=== PATIENT | male | born 1995 | race Caucasian/White ===

== ENCOUNTER 2022-07-28 15:52 | Emergency (ER) | payer OTHER, SELFPAY ==
--- NOTE | 2022-07-28 15:53 | XRR_ITS ---
PROCEDURE INFORMATION: Exam: XR Right Hand Exam date and time: 07/28/2022 4:19 PM Age: 27 years old Clinical indication: Injury or trauma; Other: Table saw; Laceration; Hand; Right; Additional info: Cut finger on saw TECHNIQUE: Imaging protocol: Radiologic exam of the Right hand. Views: 3 or more views. COMPARISON: No relevant prior studies available. FINDINGS: Bones/joints: Comminuted displaced fracture in the tuft of the 3rd distal phalanx. The other bones are intact. Soft tissues: Soft tissue crush injury or laceration in the tip of the 3rd finger. Bandage material in place. XR/XR hand RT min 3V* [id number] IMPRESSION: 1. Comminuted 3rd tuft fracture.
[2022-07-28 15:55] VITALS: BP 135/67; PULSE 54; RESP 14; TEMP 36.8; O2SAT 98; BMI 47.2
[2022-07-28 16:04] VITALS: BP 135/67; PULSE 54; RESP 14; TEMP 36.8; O2SAT 98
--- NOTE | 2022-07-28 16:32 | ED_ITS ---
Documented by User: NICKIE Negrete 07/29/22 01:19 HPI - Extremity Problem General: Chief complaint: Extremity Injury, Upper Stated complaint: Right hand, finger lac Time Seen by Provider: 07/28/22 16:10 History of Present Illness: Patient is a 27-year-old male who comes to the ED with laceration to right middle finger. Injury occurred just prior to arrival. Patient says he was using a table saw and cut distal end of right middle finger. He is not up-to-date on his tetanus. Associated symptoms: Deny chest pain, fever(s) or rash Review of Systems Const: Denies: fever(s), chills or fatigue Eyes: Denies: change in vision or eye discomfort ENMT: Denies: throat pain, odynophagia, nasal discharge or nasal congestion Card: Denies: chest pain, palpitations, edema, swelling of feet/ankles, dyspnea on exertion or orthopnea Resp: Denies: dyspnea, productive cough or non-productive cough GI: Denies: abdominal pain, nausea, vomiting, diarrhea, constipation or hematochezia : Denies: flank pain, difficulty urinating, dysuria or hematuria Musc: Reports: extremity pain (Right hand middle finger); Denies: neck pain, back pain or extremity swelling Skin/Breast: Reports: new lesions (Laceration to distal end of right middle finger); Denies: rash Neuro: Denies: headache(s), numbness in extremities or weakness in extremities [facility] ED PFSH: Medical History No pertinent family history Surgical History No pertinent past surgical history Physical Exam Const: COMMON NORMALS: no acute distress, patient oriented x3 and alert GENERAL APPEARANCE: cooperative and comfortable HENMT: COMMON NORMALS: normocephalic HEAD & SCALP: normocephalic MOUTH: Normal oral and palatal mucosa present THROAT: posterior oropharynx normal and uvula midline Neck/C-Spine: COMMON NORMALS: supple GENERAL: Yes normal visual inspection Resp: COMMON NORMALS: normal respiratory effort, No retractions, No use of accessory muscles and clear to auscultation bilaterally AUSCULTATION: clear to auscultation bilaterally Cardio: COMMON NORMALS: regular rate, regular rhythm, S1 normal heart sound present, S2 normal heart sound present, No gallops present (Cardio), No clicks present (Cardio), No murmurs present (Cardio) and Peripheral pulses 2+ throughout RATE: regular rate RHYTHM: regular rhythm HEART SOUNDS: S1 normal heart sound present and S2 normal heart sound present PERIPHERAL PULSES: Peripheral pulses 2+ throughout GI: COMMON NORMALS: Normal to inspection, nondistended, normoactive bowel sounds present, Soft to palpation, non-tender and no masses PALPATION: Yes Soft to palpation : COMMON NORMALS: Yes no CVA tenderness BLADDER/KIDNEY EXAM: Yes no CVA tenderness Back/Pelvis: COMMON NORMALS: no CVA tenderness Extremity: NARRATIVE EXTREMITY EXAM: Right hand middle finger?distal pad has irregular shaped 2.5 cm laceration. Laceration is not clean cut and extensive soft tissue damage from distal pad of finger. Nail bed and nail intact. Neuro: COMMON NORMALS: patient oriented x3 SENSORIUM/ORIENTATION: Yes alert GAIT: Yes Normal gait present Skin: GENERAL SKIN EXAM: dry skin Procedures Laceration Laceration 1: Site: hand (Distal pad end of third digit) Size (cm): 2.5 Description: irregular Depth: simple, single layer Local Anesthetic: bupivacaine 0.25% (Digital block) Amount of anesthesia used (mL): 5 Pre-repair: irrigated extensively (Extensively with normal saline beta iodine wash. Surgical scrub was also used to clean finger and hand) Skin layer closed with: nylon Size (cm): 3-0 Number of sutures: 5 Technique: simple, interrupted Nerve Block Nerve Block 1: Time out performed: Yes Local Anesthetic: bupivacaine 0.25% Amount of anesthesia used (mL): 5 Side: right Nerve Blocks: digital (Third digit) Procedure Successful: Yes Patient Tolerated Procedure: well Complications: none Course Consultations: Consultation #1: I contacted Dr. Galvan told about patient case and he told me to perform digital block on patient and irrigate and clean finger wound extensively. Loosely close laceration site with a couple sutures. Send patient home on an antibiotic and he will follow-up with him in clinic in the next couple days. Vital Signs: Vital signs: Vital Signs Temperature 98.2 F 07/28/22 18:38 Pulse Rate 54 L 07/28/22 18:38 Respiratory Rate 14 07/28/22 18:38 Blood Pressure 135/67 07/28/22 18:38 Pulse Oximetry 98 07/28/22 18:38 Oxygen Delivery Me thod 07/28/22 16:04 MDM - Extremity (Nontraumatic) Medical Decision Making Patient is a 27-year-old male comes to the ED with laceration of distal end of right middle finger. Patient cut it on a table saw just prior to arrival. Patient appears nontoxic in no acute distress or pain. Right hand middle finger?distal pad has irregular shaped 2.5 cm laceration. Laceration is not clean and extensive soft tissue damage from distal pad of finger. Nail bed and nail intact. X-ray of right hand shows comminuted third tuft fracture. I contacted Dr. Galvan about patient case and he instructed me on how to manage case here in the ED and that he will follow-up with them in the clinic in the next couple days. Digital block with bupivacaine 0.25% used for pain control. Finger and hand was then extensively cleaned with surgical scrub and wound was irrigated extensively with normal saline and beta iodine by nurse. I then placed 5 sutures to loosely close up laceration on finger. Nurse then cleaned f bianka applied some triple antibiotic ointment on it and bandaged it up. Patient was given updated tetanus here in the ED and also given a dose of IV Ancef due to open fracture. I placed an order with case management for patient to get set up for appointment with Dr. Galvan within the next 2 days for reevaluation of finger. Patient was stable for discharge home diagnosed with open fracture of distal phalanx of digit of right hand. He was sent home with a prescription for cephalexin, ibuprofen and hydrocodone for pain. Return to ED precautions given. Patient understood and agreed with plan. Lab Data Radiology Impressions Hand X-Ray 07/28/22 15:53 IMPRESSION: 1. Comminuted 3rd tuft fracture. Discharge Plan Discharge Patient Disposition: Home Clinical Impression: Open fracture of distal phalanx of digit of right hand Condition: Stable Prescriptions: New cephalexin 500 mg capsule 500 mg PO Q6H 7 Days Qty: 28 0RF ibuprofen 800 mg tablet 800 mg PO Q8H PRN (Reason: pain) Qty: 20 0RF Discharge Orders: Discharge ED (Routine); Ordered 07/28/22 Ordered By: Jean Baig Referrals: Gilda Acosta FNP-C [Primary Care Provider] - Discharge Diet: Regular Discharge Activity: Limit activity as instructed Patient Instructions: Fractures - Phalanx (Finger), Opioid Safety Activity Restrictions/Additional Instructions: Follow-up with medical provider as directed. Case management should be contacting you in the next several days to set up an appointment with Ortho for follow-up on finger injury. Do not get right hand submerged in any water and limit any activity with right hand until seen and cleared by Ortho. Take medications as prescribed. Return to the ER or your medical provider if condition worsens. Please read and understand discharge instructions. Thank you for choosing [facility] for your healthcare needs today. Please realize this is an emergency room and that we are providing you with a medical screening exam and this may not be complete and all inclusive of all the testing and or work up that you may need to determine your ailment or severity of your illness. It is very important that you follow up as instructed or that you return to the Emergency Department should you have concerns or if your condition changes or worsens in any way. Coding Level of Care Code ED Acting Manager for Chg Fwd Exam Comprehensive Documented by User: Ole Johnson DO 07/29/22 06:20 HPI - Extremity Problem General: Chief complaint: Extremity Injury, Upper Stated complaint: Right hand, finger lac Time Seen by Provider: 07/28/22 16:10 [facility] ED PFSH: Medical History No pertinent family history Surgical History No pertinent past surgical history Course Vital Signs: Vital signs: Vital Signs Temperature 98.2 F 07/28/22 18:38 Pulse Rate 54 L 07/28/22 18:38 Respiratory Rate 14 07/28/22 18:38 Blood Pressure 135/67 07/28/22 18:38 Pulse Oximetry 98 07/28/22 18:38 Oxygen Delivery Me thod 07/28/22 16:04 MDM - Extremity (Nontraumatic) Medical Decision Making Patient is a 27-year-old male comes to the ED with laceration of distal end of right middle finger. Patient cut it on a table saw just prior to arrival. Patient appears nontoxic in no acute distress or pain. Right hand middle finger?distal pad has irregular shaped 2.5 cm laceration. Laceration is not clean and extensive soft tissue damage from distal pad of finger. Nail bed and nail intact. X-ray of right hand shows comminuted third tuft fracture. I contacted Dr. Galvan about patient case and he instructed me on how to manage case here in the ED and that he will follow-up with them in the clinic in the next couple days. Digital block with bupivacaine 0.25% used for pain control. Finger and hand was then extensively cleaned with surgical scrub and wound was irrigated extensively with normal saline and beta iodine by nurse. I then placed 5 sutures to loosely close up laceration on finger. Nurse then cleaned finger applied some triple antibiotic ointment on it and bandaged it up. Patient was given updated tetanus here in the ED and also given a dose of IV Ancef due to open fracture. I placed an order with case management for patient to get set up for appointment with Dr. Galvan within the next 2 days for reevaluation of finger. Patient was stable for discharge home diagnosed with open fracture of distal phalanx of digit of right hand. He was sent home with a prescription for cephalexin, ibuprofen and hydrocodone for pain. Return to ED precautions given. Patient understood and agreed with plan. Chart reviewed and patient discussed with midlevel. Agree with assessment and plan. Lab Data Radiology Impressions Hand X-Ray 07/28/22 15:53 IMPRESSION: 1. Comminuted 3rd tuft fracture. Discharge Plan Discharge Patient Disposition: Home Clinical Impression: Open fracture of distal phalanx of digit of right hand Condition: Stable Prescriptions: New cephalexin 500 mg capsule 500 mg PO Q6H 7 Days Qty: 28 0RF ibuprofen 800 mg tablet 800 mg PO Q8H PRN (Reason: pain) Qty: 20 0RF Discharge Orders: Discharge ED (Routine); Ordered 07/28/22 Ordered By: Jean Baig Referrals: Gilda Acosta FNP-C [Primary Care Provider] - Discharge Diet: Regular Discharge Activity: Limit activity as instructed Patient Instructions: Fractures - Phalanx (Finger), Opioid Safety Activity Restrictions/Additional Instructions: Follow-up with medical provider as directed. Case management should be contacting you in the next several days to set up an appointment with Ortho for follow-up on finger injury. Do not get right hand submerged in any water and limit any activity with right hand until seen and cleared by Ortho. Take medications as prescribed. Return to the ER or your medical provider if condition worsens. Please read and understand discharge instructions. Thank you for choosing [facility] for your healthcare needs today. Please realize this is an emergency room and that we are providing you with a medical screening exam and this may not be complete and all inclusive of all the testing and or work up that you may need to determine your ailment or severity of your illness. It is very important that you follow up as instructed or that you return to the Emergency Department should you have concerns or if your condition changes or worsens in any way. Coding Level of Care Code ED Acting Manager for Marissa Lorenzo Exam Comprehensive
[2022-07-28] MEDS: ceFAZolin 2,000 MG in sodium chloride 0.9% (plus) 50 ML 100 MG IV (16:45)
[2022-07-28] MEDS: tetanus-dipt-pertussis 0.5 mL SDV IM (16:46)
[2022-07-28] MEDS: sodium chloride 0.9% 500 ML 999 ML IV (16:49)
[2022-07-28 18:38] VITALS: BP 135/67; PULSE 54; RESP 14; TEMP 36.8; O2SAT 98
--- NOTE | 2022-07-29 09:24 | DCPLANNER ---
Addendum entered by Serena Crystal 08/03/22 15:24: Patient had a follow up appointment with ortho - patient did attend appointment. Addendum entered by Serena Crystal 07/29/22 10:43: Patient has a follow up appointment scheduled for Saturday, July 30, [address]22 at 11:[address] Galvan at ortho. Clinic will call patient with appointment information. Original Note: it security manager had message to schedule a follow up appointment for patient with ortho. it security manager sent patients information to the front office staff at ortho. Patients information will be printed and reviewed. Clinic will call patient with appointment information.
== END 2022-07-28 18:41 | disposition home or self-care (01) ==
PROVIDERS: Emergency Provider Physician Assistant; PCP Nurse Practitioner Family
DX: S62.632B Displaced fracture of distal phalanx of right middle finger, initial encounter for open fracture (principal); W27.0XXA Contact with workbench tool, initial encounter; Z23 Encounter for immunization
CPT/HCPCS: 12001; 73130; 90471; 90715; 96365; 99284; 99291; 99292; A6446; J3490; J7040

== ENCOUNTER 2025-06-18 09:41 | Outpatient (CLI) | payer OTHER, SELFPAY ==
--- NOTE | 2025-06-18 09:50 | XRR_ITS ---
PROCEDURE INFORMATION: Exam: XR Right Knee Exam date and time: 06/18/2025 10:00 AM Age: 30 years old Clinical indication: Right; Pain in RT knee x 2 months. No specified injury, but pain when bending in anterior side of knee; Additional info: Inferior medial patella pain w squat TECHNIQUE: Imaging protocol: Radiologic exam of the right knee. Views: 3 views. COMPARISON: No relevant prior studies available. FINDINGS: Bones/joints: Normal. Soft tissues: Normal. XR/XR knee RT 3V* [id number] IMPRESSION: No acute findings.
== END 2025-06-18 09:42 | disposition home or self-care (01) ==
LOC: RAD 09:46
PROVIDERS: PCP Family Medicine; Visit Provider Family Medicine
DX: M22.41 Chondromalacia patellae, right knee (principal)
CPT/HCPCS: 73562